=== PATIENT | male | born 1980 | race Hispanic/Latino ===

== ENCOUNTER 2016-12-22 01:52 | Emergency (ER) | payer SELFPAY ==
[2016-12-22 02:36] VITALS: BP 120/88
--- NOTE | 2016-12-22 19:51 | ED Elopement Review ---
ED Pt Elopement review - Call Back decision Pt Call Back Decision: No action required
== END 2016-12-22 02:56 | disposition left against medical advice (07) ==
LOC: ED 01:52
DX: R07.9 Chest pain, unspecified (principal); Z53.21 Procedure and treatment not carried out due to patient leaving prior to being seen by health care provider
CPT/HCPCS: 93005; 93010